=== PATIENT | female | born 1945 | race Two or more races ===

== ENCOUNTER 2017-02-21 05:09 | Emergency (ER) | payer BC, MEDICAID ==
[~2017-02-21] VITALS: Ht 165.1 cm; Wt 64.0 kg
[~2017-02-21 05:09] MED LIST: ACET-2178 PO; ASPI-1159 PO; CARV25TA47 PO; CLOP75TA33 PO; HYDR25TA PO; INSU3INS6 SQ; LISI-604 PO; METF500T4 PO; OMEP20TA80 PO
[2017-02-21] MEDS ORDERED: KETOROLAC 60MG/2ML VIAL IM STA (06:24)
[2017-02-21 06:53] LABS: CLARITY URINE CLEAR (CLEAR); COLOR URINE YELLOW (YELLOW); GLUCOSE URINE NEGATIVE (NEGATIVE); KETONES URINE 1+ (NEGATIVE); LEUKOCYTE ESTERASE URINE NEGATIVE (NEGATIVE); NITRITE URINE NEGATIVE (NEGATIVE); OCCULT BLOOD URINE TRACE (NEGATIVE); PH URINE 8.5 (4.5-8.0); PROTEIN URINE 3+ (NEGATIVE); SPECIFIC GRAVITY URINE 1.011 (1.005-1.030); UROBILINOGEN URINE 0.2 E.U./dL (0.2-1.0)
[2017-02-21 07:15] LABS: BASOPHILS % 0.7 % (0.0-2.0); EOSINOPHILS % 4.8 % (0.0-5.0); HEMATOCRIT. 34.7 % (36.0-48.0); HEMOGLOBIN. 11.3 g/dL (12.0-16.0); LYMPHOCYTES % 33.7 % (20.0-50.0); MEAN CORPUSCULAR HEMOGLOBIN 25.9 pg (28.0-32.0); MEAN CORPUSCULAR VOLUME 79.3 fL (81.0-99.0); MEAN PLATELET VOLUME 7.6 fl (7.4-10.4); MONOCYTES % 8.6 % (2.0-8.0); NEUTROPHILS % 52.2 % (40.0-76.0); PLATELET 255 x1000/uL (130-400); RED BLOOD CELL COUNT 4.38 mill/uL (4.2-5.4); RED CELL DISTRIBUTION WIDTH 17.3 % (11.6-14.6)
[2017-02-21 07:28] LABS: CARBON DIOXIDE 29 mEq/L (21-32); CHLORIDE 104 mEq/L (98-107); TROPONIN I 0.03 ng/mL (0.00-0.04)
[2017-02-21 07:44] LABS: PROTHROMBIN TIME 10.8 sec
[2017-02-21 10:38] VITALS: BP 172/82
== END 2017-02-21 10:44 | disposition home or self-care (01) ==
LOC: ER 05:23
DX: M54.5 Low back pain (principal); M54.31 Sciatica, right side; E11.65 Type 2 diabetes mellitus with hyperglycemia; M47.896 Other spondylosis, lumbar region; E87.6 Hypokalemia; D50.9 Iron deficiency anemia, unspecified; I51.9 Heart disease, unspecified; Z79.82 Long term (current) use of aspirin; Z79.4 Long term (current) use of insulin; Z88.6 Allergy status to analgesic agent; Z98.1 Arthrodesis status
CPT/HCPCS: 36415; 72100; 80053; 81001; 83880; 84484; 85025; 85610; 87086; 96372; 99285; J1885